=== PATIENT | female | born 1985 | race Caucasian/White ===

== ENCOUNTER 2017-03-18 11:57 | Observation (INO) ==
[2017-03-18 12:52] LABS: Basophils # 0.1 10*3/uL (0.0-0.2); Basophils % 0.7 % (0.0-0.8); Eosinophils # 0.6 10*3/uL (0.0-0.87); Eosinophils % 4.8 % (0.00-10.9); Hematocrit 40.8 VOL% (35.7-47.0); Hemoglobin 13.6 GM/DL (12.0-16.0); Immature Granulocytes % 0.4 %; Immature Granulocytes Absolute 0.05 #; Lymphocytes # 3.5 10*3/uL (1.4-4.0); Lymphocytes % 30.3 % (21.3-54.2); Mean Corpuscular HGB Conc 33.3 GM/DL (32-36); Mean Corpuscular Hemoglobin 33 PG (27-34); Mean Corpuscular Volume 98.8 FL (87-102); Mean Platelet Volume 9.9 FL (9.6-12.0); Monocytes # 0.9 10*3/uL (0.11-0.8); Monocytes % 7.9 % (1.7-12.7); Neutrophils # 6.5 10*3/uL (1.4-7.4); Neutrophils % 55.9 % (38.7-73.9); Platelet Count 335 T/CUMM (130-400); Red Blood Count 4.13 MC/CUMM (3.8-5.5); Red Cell Distribution Width 13.4 % (9.3-17.3); White Blood Count 11.6 T/CUMM (4-12)
[2017-03-18 13:26] LABS: Alanine Aminotransferase 20 U/L (13-56); Albumin 3.6 G/DL (3.4-5.0); Alkaline Phosphatase 101 U/L (45-117); Aspartate Amino Transferase 13 U/L (0-37); Bilirubin,Total < 0.39 MG/DL (0.2-1.0); Calcium 9.7 MG/DL (8.5-10.1); Total Protein 7.4 G/DL (6.4-8.3)
[2017-03-18 13:27] LABS: Blood Urea Nitrogen 13 MG/DL (7-18); Glucose 88 MG/DL (74-106); Osmolality,Calculated 275.5 MOS/KG (273-304); Potassium 4.1 MMOL/L (3.5-5.1); Sodium 139 MMOL/L (136-145)
[2017-03-18] MEDS ORDERED: CLINDAMYCIN INJ 600 MG in PREMIX 1 EACH IV STA (13:35)
[2017-03-18] MEDS ORDERED: BUPIVACAINE 0.25% 50 ML VIAL ONE (13:36)
[2017-03-18] MEDS ORDERED: LIDOCAINE 1%/EPI INJ 20 ML VIAL ONE (13:36)
[2017-03-18] MEDS ORDERED: CLINDAMYCIN INJ 50 ML IV ONE (13:44)
[2017-03-18] MEDS ORDERED: LORazepam 1 MG TABLET PO ONE (13:47)
[2017-03-18] MEDS ORDERED: FAMOTIDINE 20 MG/2 ML VIAL IV ONE (13:47)
[2017-03-18] MEDS ORDERED: LACTATED RINGERS 1,000 ML IV SCH (14:00)
[2017-03-18] MEDS ORDERED: ONDANSETRON 4 MG/2 ML VIAL IV PRN ×2 (15:03→17:25)
[2017-03-18] MEDS ORDERED: SEVOFLURANE 1 UNIT/15 MINUTE INH ONE (15:05)
[2017-03-18] MEDS ORDERED: PROPOFOL 200 MG/20 ML VIAL IV ONE (15:05)
[2017-03-18] MEDS ORDERED: ONDANSETRON 4 MG/2 ML VIAL ONE ×2 (15:06→15:09)
[2017-03-18] MEDS ORDERED: MIDAZOLAM 2 MG/2 ML VIAL ONE (15:06)
[2017-03-18] MEDS ORDERED: SUCCINYLCHOLINE 200 MG/10 ML VIAL ONE (15:06)
[2017-03-18] MEDS ORDERED: fentaNYL 100 MCG/2 ML VIAL ONE (15:06)
[2017-03-18] MEDS ORDERED: ROCURONIUM 100 MG/10 ML VIAL IV ONE (15:06)
[2017-03-18] MEDS ORDERED: ALBUTEROL 2.5 MG/3 ML NEB RESP TX ONE (15:06)
[2017-03-18] MEDS ORDERED: HYDROmorphone 2 MG/1 ML VIAL ONE (15:09)
[2017-03-18] MEDS: HYDROmorphone 2 MG/1 ML VIAL IV PRN ×4 (15:10→15:25)
[2017-03-18] MEDS ORDERED: ACETAMINOPHEN 325 MG TABLET PO PRN (17:25)
[2017-03-18] MEDS: MORPHINE 2 MG/1 ML SYRINGE IV PRN ×2 (18:02→23:48)
[2017-03-18] MEDS: CLINDAMYCIN INJ 600 MG in PREMIX 1 EACH IV SCH (18:07)
[2017-03-18] MEDS ORDERED: NON-FORMULARY MEDICATION (Alprazolam [Alprazolam] 1 MG) PO PRN (20:25)
[2017-03-18] MEDS ORDERED: LITHIUM CARBONATE 300 MG PO SCH (21:00)
[2017-03-18] MEDS ORDERED: PROPRANOLOL HCL 20 MG PO SCH (21:00)
[2017-03-18] MEDS ORDERED: NON-FORMULARY MEDICATION (Quetiapine Fumarate [Seroquel] 300 MG) PO SCH (21:00)
[2017-03-18] MEDS: DEXTROSE 5% NACL 0.45% 1,000 ML IV SCH ×2 (21:19→21:31)
[2017-03-18] MEDS ORDERED: BACLOFEN PO SCH (22:00)
[2017-03-19] MEDS: CLINDAMYCIN INJ 600 MG in PREMIX 1 EACH IV SCH ×2 (01:41→09:47)
[2017-03-19] MEDS: DEXTROSE 5% NACL 0.45% 1,000 ML IV SCH ×2 (02:37→05:26)
[2017-03-19] MEDS ORDERED: PANTOPRAZOLE 40 MG TABLET PO SCH (09:00)
[2017-03-19] MEDS ORDERED: CARIPRAZINE HCL 3 MG PO SCH (09:00)
[2017-03-19] MEDS ORDERED: SERTRALINE 100 MG PO SCH (09:00)
[2017-03-19 11:40] VITALS: BP 142/89
== END 2017-03-19 12:00 | disposition home or self-care (01) ==
LOC: N.ED 11:57 → N.EDINP 11:57 → N.3E 16:12
PROVIDERS: ADMIT Surgery; ATTEND Surgery